=== PATIENT | male | born 1955 | race African-American/Black ===

== ENCOUNTER 2023-02-27 18:49 | Inpatient (IN) | payer MEDICARE, OTHER ==
[~2023-02-27] VITALS: Ht 175.3 cm; Wt 127.9 kg
[~2023-02-27 18:49] MED LIST: TRAM50TA3 PO
[2023-02-27 19:52] LABS: BASOPHILS % 0.3 % (0.0-2.0); EOSINOPHILS % 0.1 % (0.0-5.0); HEMOGLOBIN. 12.2 g/dL (14.0-18.0); LYMPHOCYTES % 8.1 % (20.0-50.0); MEAN CORPUSCULAR HEMOGLOBIN 28.6 pg (28.0-32.0); MEAN CORPUSCULAR VOLUME 86.5 fL (80.0-94.0); MEAN PLATELET VOLUME 9.7 fl (7.4-10.4); MONOCYTES % 7.1 % (2.0-8.0); NEUTROPHILS % 84.4 % (40.0-76.0); PLATELET 179 x1000/uL (130-400); RED BLOOD CELL COUNT 4.27 mill/uL (4.7-6.1); RED CELL DISTRIBUTION WIDTH 15.4 % (11.6-14.6)
[2023-02-27 19:54] LABS: CHLORIDE 108 mEq/L (98-107)
[2023-02-27 19:58] LABS: INR 1.1; PROTHROMBIN TIME 11.4 sec (9.6-11.0)
[2023-02-27] MEDS ORDERED: SODIUM CHLORIDE 0.9% 1,000 ML IV ONE (20:00)
[2023-02-27 20:06] LABS: CREATINE KINASE 212 IU/L (39-308)
[2023-02-28 02:09] VITALS: BP 140/74
[2023-02-28 02:11] VITALS: BP 140/74
[2023-02-28] MEDS ORDERED: FURO20TA4 PO (02:21)
[2023-02-28] MEDS ORDERED: CLOT15CR5 TP (02:21)
[2023-02-28] MEDS ORDERED: TERB250T88 PO (02:21)
[2023-02-28] MEDS ORDERED: DEXTROSE 50% WATER 50ML SYRINGE IV PRN (05:15)
[2023-02-28 08:00] VITALS: BP 158/47
[2023-02-28] MEDS: INSULIN LISPRO 100 UNITS/ML SUBCUT SCH ×4 (08:09→21:34)
[2023-02-28] MEDS: BLOOD SUGAR DIAGNOSTIC STRIP TEST SCH ×4 (08:09→21:00)
[2023-02-28 12:00] VITALS: BP 146/68
[2023-02-28] MEDS ORDERED: ACETAMINOPHEN 325MG TABLET PO PRN ×2 (13:30)
[2023-02-28] MEDS ORDERED: IPRATROPIUM/ALBUTEROL 0.5-3(2.5)MG/3ML NEB HHN PRN (13:30)
[2023-02-28] MEDS ORDERED: HYDROCODONE/ACETAMINOPHEN 5/325MG TABLET PO PRN (13:30)
[2023-02-28] MEDS ORDERED: LORAZEPAM 0.5MG TABLET PO PRN (13:30)
[2023-02-28] MEDS ORDERED: ONDANSETRON HCL 4MG/2ML INJ IV PRN (13:30)
[2023-02-28] MEDS ORDERED: NALOXONE HCL 0.4MG/ML VIAL IV PRN (13:45)
[2023-02-28] MEDS: TERBINAFINE HCL 250MG TABLET PO SCH (15:49)
[2023-02-28 16:00] VITALS: BP 121/47
[2023-02-28] MEDS: ENOXAPARIN 40MG/0.4ML SYR SUBCUT SCH (17:39)
[2023-02-28] MEDS: CLOTRIMAZOLE/BETAMETHASONE 1/0.05% CREAM 15GM TOP SCH (18:02)
[2023-02-28 20:00] VITALS: BP 109/67
[2023-03-01] VITALS (7 sets, daily range): BP systolic 149–163; BP diastolic 73–87
[2023-03-01] MEDS: ENOXAPARIN 40MG/0.4ML SYR SUBCUT SCH ×2 (05:08→17:33)
[2023-03-01] MEDS: BLOOD SUGAR DIAGNOSTIC STRIP TEST SCH ×4 (07:40→20:38)
[2023-03-01] MEDS: INSULIN LISPRO 100 UNITS/ML SUBCUT SCH ×4 (08:10→20:38)
[2023-03-01] MEDS: TERBINAFINE HCL 250MG TABLET PO SCH (08:47)
[2023-03-01] MEDS: FUROSEMIDE 20MG TABLET PO SCH (08:47)
[2023-03-01] MEDS: CLOTRIMAZOLE/BETAMETHASONE 1/0.05% CREAM 15GM TOP SCH ×2 (10:21→17:34)
[2023-03-01 16:10] LABS: BASOPHILS % 0.6 % (0.0-2.0); EOSINOPHILS % 0.6 % (0.0-5.0); HEMATOCRIT. 38.7 % (42.0-52.0); HEMOGLOBIN. 12.8 g/dL (14.0-18.0); LYMPHOCYTES % 19.5 % (20.0-50.0); MEAN CORPUSCULAR HEMOGLOBIN 28.6 pg (28.0-32.0); MEAN CORPUSCULAR VOLUME 86.4 fL (80.0-94.0); MEAN PLATELET VOLUME 10.1 fl (7.4-10.4); MONOCYTES % 8.4 % (2.0-8.0); NEUTROPHILS % 70.9 % (40.0-76.0); PLATELET 181 x1000/uL (130-400); RED BLOOD CELL COUNT 4.48 mill/uL (4.7-6.1); RED CELL DISTRIBUTION WIDTH 15.2 % (11.6-14.6)
[2023-03-01 16:24] LABS: CHLORIDE 107 mEq/L (98-107)
[2023-03-01 16:31] LABS: CREATINE KINASE 231 IU/L (39-308)
[2023-03-02] VITALS: BP 153/78
[2023-03-02 04:00] VITALS: BP 146/80
[2023-03-02] MEDS: ENOXAPARIN 40MG/0.4ML SYR SUBCUT SCH ×2 (05:27→17:49)
[2023-03-02] MEDS: BLOOD SUGAR DIAGNOSTIC STRIP TEST SCH ×4 (07:40→20:31)
[2023-03-02 08:00] VITALS: BP 130/88
[2023-03-02] MEDS: INSULIN LISPRO 100 UNITS/ML SUBCUT SCH ×4 (08:10→20:31)
[2023-03-02] MEDS: TERBINAFINE HCL 250MG TABLET PO SCH (08:42)
[2023-03-02] MEDS: CLOTRIMAZOLE/BETAMETHASONE 1/0.05% CREAM 15GM TOP SCH ×2 (08:43→17:49)
[2023-03-02] MEDS: FUROSEMIDE 20MG TABLET PO SCH (08:43)
[2023-03-02 12:00] VITALS: BP 164/91
[2023-03-02 17:30] VITALS: BP 141/85
[2023-03-02 20:00] VITALS: BP 149/85
[2023-03-03] VITALS: BP 167/84
[2023-03-03] MEDS: CLONIDINE 0.1MG TABLET PO PRN (00:17)
[2023-03-03 04:00] VITALS: BP 159/83
[2023-03-03] MEDS: NIFEDIPINE XL 30MG TAB PO SCH ×2 (04:36→09:51)
[2023-03-03] MEDS: ENOXAPARIN 40MG/0.4ML SYR SUBCUT SCH ×2 (05:28→17:50)
[2023-03-03] MEDS: BLOOD SUGAR DIAGNOSTIC STRIP TEST SCH ×4 (06:13→21:00)
[2023-03-03] MEDS: INSULIN LISPRO 100 UNITS/ML SUBCUT SCH ×4 (07:50→21:00)
[2023-03-03 08:00] VITALS: BP 154/100
[2023-03-03] MEDS: CLOTRIMAZOLE/BETAMETHASONE 1/0.05% CREAM 15GM TOP SCH ×2 (09:00→17:00)
[2023-03-03] MEDS: TERBINAFINE HCL 250MG TABLET PO SCH (09:00)
[2023-03-03] MEDS: FUROSEMIDE 20MG TABLET PO SCH (09:51)
[2023-03-03 12:00] VITALS: BP 158/73
[2023-03-03 16:00] VITALS: BP 152/88
[2023-03-03 20:00] VITALS: BP 123/66
[2023-03-04] VITALS: BP 153/84
[2023-03-04 04:00] VITALS: BP 128/62
[2023-03-04] MEDS: ENOXAPARIN 40MG/0.4ML SYR SUBCUT SCH (06:26)
[2023-03-04] MEDS: BLOOD SUGAR DIAGNOSTIC STRIP TEST SCH ×4 (07:20→21:00)
[2023-03-04] MEDS: INSULIN LISPRO 100 UNITS/ML SUBCUT SCH ×4 (07:50→21:00)
[2023-03-04 08:00] VITALS: BP 126/76
[2023-03-04] MEDS: FUROSEMIDE 20MG TABLET PO SCH (08:53)
[2023-03-04] MEDS: NIFEDIPINE XL 30MG TAB PO SCH (08:53)
[2023-03-04] MEDS: TERBINAFINE HCL 250MG TABLET PO SCH (08:53)
[2023-03-04] MEDS: CLOTRIMAZOLE/BETAMETHASONE 1/0.05% CREAM 15GM TOP SCH (08:54)
[2023-03-04 12:00] VITALS: BP 152/76
[2023-03-04 16:00] VITALS: BP 145/80
[2023-03-05] VITALS: BP 163/81
[2023-03-05] MEDS: ENOXAPARIN 40MG/0.4ML SYR SUBCUT SCH ×2 (06:00→18:29)
[2023-03-05] MEDS: BLOOD SUGAR DIAGNOSTIC STRIP TEST SCH ×4 (06:10→20:52)
[2023-03-05] MEDS: INSULIN LISPRO 100 UNITS/ML SUBCUT SCH ×4 (07:50→21:48)
[2023-03-05 08:00] VITALS: BP_SYST 131; BP_SYST 82; BP_DIAS 49; BP_DIAS 72
[2023-03-05] MEDS: FUROSEMIDE 20MG TABLET PO SCH (09:00)
[2023-03-05] MEDS: TERBINAFINE HCL 250MG TABLET PO SCH (09:00)
[2023-03-05] MEDS: NIFEDIPINE XL 30MG TAB PO SCH (09:00)
[2023-03-05] MEDS: CLOTRIMAZOLE/BETAMETHASONE 1/0.05% CREAM 15GM TOP SCH ×2 (09:00→17:00)
[2023-03-05 12:00] VITALS: BP 144/64
[2023-03-05 16:00] VITALS: BP 152/83
[2023-03-06] VITALS: BP 142/80
[2023-03-06 04:00] VITALS: BP 171/79
[2023-03-06] MEDS: ENOXAPARIN 40MG/0.4ML SYR SUBCUT SCH ×2 (06:32→18:27)
[2023-03-06] MEDS: BLOOD SUGAR DIAGNOSTIC STRIP TEST SCH ×4 (06:32→21:06)
[2023-03-06] MEDS: INSULIN LISPRO 100 UNITS/ML SUBCUT SCH ×4 (07:50→21:00)
[2023-03-06 08:00] VITALS: BP 139/82
[2023-03-06] MEDS: CLOTRIMAZOLE/BETAMETHASONE 1/0.05% CREAM 15GM TOP SCH ×2 (09:00→17:00)
[2023-03-06] MEDS: TERBINAFINE HCL 250MG TABLET PO SCH (09:48)
[2023-03-06] MEDS: NIFEDIPINE XL 30MG TAB PO SCH (09:48)
[2023-03-06] MEDS: FUROSEMIDE 20MG TABLET PO SCH (09:48)
[2023-03-06 12:00] VITALS: BP 155/81
[2023-03-06 16:00] VITALS: BP 140/87
[2023-03-06 20:00] VITALS: BP 159/117
[2023-03-06] MEDS: DOCUSATE SODIUM 100MG CAPSULE PO PRN (21:07)
[2023-03-07 04:00] VITALS: BP 122/79
[2023-03-07] MEDS: ENOXAPARIN 40MG/0.4ML SYR SUBCUT SCH (06:15)
[2023-03-07] MEDS: BLOOD SUGAR DIAGNOSTIC STRIP TEST SCH ×3 (06:23→20:41)
[2023-03-07] MEDS: INSULIN LISPRO 100 UNITS/ML SUBCUT SCH ×3 (06:23→20:48)
[2023-03-07 06:54] LABS: BASOPHILS % 0.7 % (0.0-2.0); EOSINOPHILS % 0.9 % (0.0-5.0); HEMATOCRIT. 45.4 % (42.0-52.0); HEMOGLOBIN. 15.4 g/dL (14.0-18.0); LYMPHOCYTES % 27.7 % (20.0-50.0); MEAN CORPUSCULAR HEMOGLOBIN 28.9 pg (28.0-32.0); MEAN CORPUSCULAR VOLUME 85.3 fL (80.0-94.0); MONOCYTES % 9.4 % (2.0-8.0); NEUTROPHILS % 61.3 % (40.0-76.0); PLATELET 220 x1000/uL (130-400); RED BLOOD CELL COUNT 5.33 mill/uL (4.7-6.1)
[2023-03-07 08:00] VITALS: BP 176/99
[2023-03-07 08:20] LABS: VITAMIN B12 SERUM 645 pg/mL (211-911)
[2023-03-07 08:35] LABS: CHLORIDE 103 mEq/L (98-107)
[2023-03-07] MEDS: FUROSEMIDE 20MG TABLET PO SCH (09:00)
[2023-03-07] MEDS: NIFEDIPINE XL 30MG TAB PO SCH ×2 (09:00→17:05)
[2023-03-07] MEDS: TERBINAFINE HCL 250MG TABLET PO SCH (09:00)
[2023-03-07] MEDS: CLOTRIMAZOLE/BETAMETHASONE 1/0.05% CREAM 15GM TOP SCH ×2 (09:00→17:00)
[2023-03-07 12:00] VITALS: BP 148/81
[2023-03-07] MEDS: RISPERIDONE 0.25MG TABLET PO SCH ×2 (15:29→17:04)
[2023-03-07 16:00] VITALS: BP 150/82
[2023-03-07] MEDS: DOCUSATE SODIUM 100MG CAPSULE PO PRN (17:03)
[2023-03-07] MEDS: CLONIDINE 0.1MG TABLET PO PRN (17:04)
[2023-03-07] MEDS: ENOXAPARIN 30MG/0.3ML SYR SUBCUT SCH (20:42)
[2023-03-07] MEDS: MEMANTINE HCL 5MG TABLET PO SCH (20:52)
[2023-03-08] MEDS: BLOOD SUGAR DIAGNOSTIC STRIP TEST SCH ×4 (06:47→21:02)
[2023-03-08] MEDS: INSULIN LISPRO 100 UNITS/ML SUBCUT SCH ×4 (07:50→21:28)
[2023-03-08 08:00] VITALS: BP 152/96
[2023-03-08] MEDS: MEMANTINE HCL 5MG TABLET PO SCH ×2 (09:00→21:01)
[2023-03-08] MEDS: FUROSEMIDE 20MG TABLET PO SCH (09:01)
[2023-03-08] MEDS: NIFEDIPINE XL 30MG TAB PO SCH ×2 (09:01→17:49)
[2023-03-08] MEDS: RISPERIDONE 0.25MG TABLET PO SCH ×2 (09:01→17:48)
[2023-03-08] MEDS: ENOXAPARIN 30MG/0.3ML SYR SUBCUT SCH ×2 (09:02→21:02)
[2023-03-08 12:00] VITALS: BP 145/96
[2023-03-08] MEDS ORDERED: LORAZEPAM 2MG/ML CPJ IV PRN (13:15)
[2023-03-08 16:00] VITALS: BP_SYST 104; BP_SYST 138; BP_DIAS 68; BP_DIAS 84
[2023-03-09] VITALS: BP 123/79
[2023-03-09 04:00] VITALS: BP 130/70
[2023-03-09] MEDS: INSULIN LISPRO 100 UNITS/ML SUBCUT SCH ×4 (06:34→21:46)
[2023-03-09] MEDS: BLOOD SUGAR DIAGNOSTIC STRIP TEST SCH ×4 (06:34→21:00)
[2023-03-09] MEDS: MEMANTINE HCL 5MG TABLET PO SCH ×2 (08:53→21:34)
[2023-03-09] MEDS: NIFEDIPINE XL 30MG TAB PO SCH ×2 (08:53→17:00)
[2023-03-09] MEDS: FUROSEMIDE 20MG TABLET PO SCH (08:53)
[2023-03-09] MEDS: RISPERIDONE 0.25MG TABLET PO SCH ×2 (08:53→17:00)
[2023-03-09] MEDS: ENOXAPARIN 30MG/0.3ML SYR SUBCUT SCH ×2 (08:54→21:34)
[2023-03-09] MEDS: CLOTRIMAZOLE/BETAMETHASONE 1/0.05% CREAM 15GM TOP SCH ×2 (08:58→17:00)
[2023-03-09 12:00] VITALS: BP 113/71
[2023-03-09 16:00] VITALS: BP 143/70
[2023-03-09] MEDS ORDERED: CLOTRIMAZOLE/BETAMETHASONE 1/0.05% CREAM 15GM TOP SCH (17:00)
[2023-03-09 20:00] VITALS: BP 170/80
[2023-03-09 20:14] VITALS: BP 143/70
[2023-03-09] MEDS: CLONIDINE 0.1MG TABLET PO PRN (21:36)
== END 2023-03-09 22:17 | DRG 683 ==
LOC: ER 18:49 → 7WST 22:24 → ENRESERV 02-28 01:00 → 6EST 03-03 06:00
PROVIDERS: ADMIT Internal Medicine; ATTEND Internal Medicine
DX: N17.9 Acute kidney failure, unspecified (principal); F05 Delirium due to known physiological condition; G93.40 Encephalopathy, unspecified; Z68.41 Body mass index [BMI] 40.0-44.9, adult; E66.01 Morbid (severe) obesity due to excess calories; T14.8XXA Other injury of unspecified body region, initial encounter; E11.65 Type 2 diabetes mellitus with hyperglycemia; W19.XXXA Unspecified fall, initial encounter; F03.90 Unspecified dementia, unspecified severity, without behavioral disturbance, psychotic disturbance, mood disturbance, and anxiety; D64.9 Anemia, unspecified; I10 Essential (primary) hypertension; B35.1 Tinea unguium; R00.0 Tachycardia, unspecified; Z20.822 Contact with and (suspected) exposure to COVID-19; E78.00 Pure hypercholesterolemia, unspecified; Y92.009 Unspecified place in unspecified non-institutional (private) residence as the place of occurrence of the external cause; Y99.8 Other external cause status; Y93.89 Activity, other specified
CPT/HCPCS: 36415; 70551; 71045; 71110; 80048; 80053; 82010; 82040; 82550; 82607; 82962; 83036; 83605; 83880; 84134; 84145; 84443; 84484; 85025; 87426; 93005; 93970; 97162; 97166; 99285; C1893; C9803; J1650; J1815; J7030